=== PATIENT | female | born 1985 | race Caucasian/White ===

== ENCOUNTER 2016-09-21 10:19 | Emergency (ER) | payer MEDICAID ==
[~2016-09-21] VITALS: Ht 165.1 cm; Wt 61.3 kg
[2016-09-21 10:26] VITALS: BP 134/82
[2016-09-21] MEDS ORDERED: NACL 0.9% 1,000 ML IV ONE ×2 (10:35→11:25)
[2016-09-21] MEDS ORDERED: ONDANSETRON 4 MG/2 ML VIAL IVP ONE (10:35)
[2016-09-21] MEDS ORDERED: KETOROLAC 30 MG/ML VIAL IVP ONE (10:35)
--- NOTE | 2016-09-21 10:52 | NUR ---
31/F TO ED WITH C/O EPIGASTRIC PAIN X2 DAYS. PAIN 07/16. STATES SHE HAS NAUSEA AND DIARREHA. PT HAS HX OF GALL STONES. LUNGS CLEAR BILAL. BOWEL SOUNDS PRESENT X4Q. HR EVEN AND REGULAR. AAOX4. VSS. NO SIGNS OF DISTRESS.
--- NOTE | 2016-09-21 11:25 | NUR ---
Patient appears to be resting comfortably in bed. Vital Signs within normal limits. Respirations even and unlabored.
[2016-09-21] MEDS ORDERED: POTASSIUM CHLORIDE 10 MEQ TABER PO ONE (11:30)
[2016-09-21 12:28] VITALS: BP 134/82
--- NOTE | 2016-09-21 12:30 | NUR ---
Patient discharged with v/s stable. Written and verbal after care instructions given and explained. Patient alert, oriented and verbalized understanding of instructions. Ambulatory with steady gait. All questions addressed prior to discharge. ID band removed. Patient advised to follow up with PMD. Rx of ZOFRAN, NORCO, MOTRIN given. Patient educated on indication of medication including possible reaction and side effects. Opportunity to ask questions provided and answered.
--- NOTE | 2016-09-21 13:45 | NUR ---
SPOKE WITH PATIENT ON TELEPHONE; PT STATED WAS SEEN AT [facility] TODAY, DISCHARGED, BUT FORGOT TO ASK ER MD DR. NI FOR NOTE FOR WORK THAT PT WAS SEEN AT ER TODAY AND ASKED IF WORK NOTE CAN BE FAXED TO PT; ER MD DR. NI NOTIFIED; PER ER MD DR. NI, WORK NOTE CAN BE FAXED TO PT; FAXED SIGNED WORK NOTE TO PATIENT AT FAX NUMBER PROVIDED BY PATIENT: [phone]; CONFIRMATION OF FAX RECIEVED.
== END 2016-09-21 12:30 | disposition home or self-care (01) ==
LOC: MED 10:19
DX: K80.20 Calculus of gallbladder without cholecystitis without obstruction (principal); R19.7 Diarrhea, unspecified; E87.6 Hypokalemia; R94.5 Abnormal results of liver function studies; R74.8 Abnormal levels of other serum enzymes; F17.210 Nicotine dependence, cigarettes, uncomplicated
CPT/HCPCS: 36415; 76705; 80053; 81001; 81025; 83690; 84703; 85025; 96361; 96374; 96375; 99285; J1885; J2405; J7030; Q0092

== ENCOUNTER 2017-03-07 12:50 | Inpatient (IN) | payer MEDICAID ==
[~2017-03-07] VITALS: Ht 165.1 cm; Wt 59.9 kg
[2017-03-07 13:06] VITALS: BP 130/84
--- NOTE | 2017-03-07 13:51 | NUR ---
PT AMBULATED TO BED 1.
--- NOTE | 2017-03-07 14:01 | NUR ---
Rupinder rosas in [facility] - 03/07/17 at [address] RICHARDS EVALUATING AAO PT AT BEDSIDE
--- NOTE | 2017-03-07 14:06 | NUR ---
DR RICHARDS EVALUATING AAO PT AT BEDSIDE
--- NOTE | 2017-03-07 14:12 | NUR ---
PATIENT PRESENTS TO ED WITH RUQ PRESSURE PAIN X 3 DAYS AGO WITH EMESIS----WORSE WHEN LAYING DOWN DENIES WATERY/LOOSE STOOLS ADMITS TO DRINKING THIS WEEKEND HX---PSORIASIS, GALLSTONE RX--- CONTROL IMPLANT LUE DENIES DIARRHEA; SKIN IS PINK/WARM/DRY; AAOX4 WITH EVEN AND STEADY GAIT; LUNGS CLEAR BL; HR EVEN AND REGULAR; PT DENIES ANY FEVER, CP, SOB, OR COUGH AT THIS TIME; PATIENT STATES PAIN OF 4/10 AT THIS TIME; VSS; PATIENT POSITIONED FOR COMFORT; HOB ELEVATED; BEDRAILS UP X2; BED DOWN. ER MD MADE AWARE OF PT STATUS.
[2017-03-07] MEDS ORDERED: NACL 0.9% 1,000 ML IV ONE ×2 (14:20→15:35)
[2017-03-07] MEDS ORDERED: MORPHINE SULFATE 4 MG/ML SYR IVP ONE (14:20)
[2017-03-07] MEDS ORDERED: KETOROLAC 30 MG/ML VIAL IVP ONE (14:20)
[2017-03-07] MEDS ORDERED: ONDANSETRON 4 MG/2 ML VIAL IVP ONE (14:20)
[2017-03-07 15:06] LABS: BASOPHILS # (AUTO) 0.2 K/uL (0.00-0.22); BASOPHILS % (AUTO) 3.2 % (0.0-2.0); EOSINOPHILS % (AUTO) 0.5 % (0.0-4.0); HEMATOCRIT 35.7 % (36-48); HEMOGLOBIN 12.2 g/dL (12.0-16.0); LYMPHOCYTES # (AUTO) 1.2 K/uL (2.5-16.5); LYMPHOCYTES % (AUTO) 21.6 % (20.5-51.1); MEAN CORPUSCULAR HEMOGLOBIN 38 pg (27-31); MEAN CORPUSCULAR HGB CONC 34 g/dL (33-37); MEAN CORPUSCULAR VOLUME 111 fL (80-94); MONOCYTES # (AUTO) 0.4 K/uL (0.8-1.0); MONOCYTES % (AUTO) 6.7 % (1.7-9.3); NEUTROPHILS # (AUTO) 3.9 K/uL (1.8-7.7); RED BLOOD CELL COUNT(AUTO) 3.21 MIL/uL (4.20-5.40); RED CELL DISTRIBUTION WIDTH 13.1 % (11.6-13.7); WHITE BLOOD COUNT (AUTO) 5.7 K/uL (4.8-10.8)
[2017-03-07 15:07] LABS: PLATELET COUNT (AUTO) 73 K/uL (140-450)
[2017-03-07 15:10] LABS: APPEARANCE,URINE CLEAR (CLEAR); BILIRUBIN,URINE NEGATIVE (NEGATIVE); BLOOD, URINE TRACE-L (NEGATIVE); COLOR,URINE YELLOW (YELLOW); LEUKOCYTE ESTERASE ,URINE NEGATIVE (NEGATIVE); NITRITE, URINE NEGATIVE (NEGATIVE); UGLUCOSE NEGATIVE (NEGATIVE)
[2017-03-07 15:23] LABS: ALBUMIN 4.7 g/dL (3.4-5.0); ANION GAP 26.9 (8-16); CARBON DIOXIDE 17.8 mmol/L (21-32); CREATININE 0.7 mg/dL (0.6-1.3); POTASSIUM 4.7 mmol/L (3.5-5.1); TOTAL BILIRUBIN 2.2 mg/dL (0.0-1.0)
[2017-03-07 15:34] LABS: RBC,URINE 0-5 (RARE) /HPF (0-5); WBC,URINE 0-5 (RARE) /HPF (0-5)
[2017-03-07] MEDS ORDERED: NACL 0.9% 1,000 ML IV SCH (15:51)
[2017-03-07] MEDS ORDERED: ACETAMINOPHEN 325 MG TAB PO PRN (15:55)
[2017-03-07] MEDS ORDERED: HYDROcodone/APAP 7.5/325 MG 1 TAB PO PRN (15:55)
[2017-03-07] MEDS ORDERED: ONDANSETRON 4 MG/2 ML VIAL IVP PRN ×2 (15:55→16:40)
[2017-03-07 16:00] VITALS: BP 106/73
--- NOTE | 2017-03-07 16:19 | NUR ---
Patient will be admitted to care of JO. Admited to TELE. Will go to room 119B. Belongings list completed. Report to ISRAEL TILLEY.
--- NOTE | 2017-03-07 16:30 | NUR ---
PATIENT ARRIVED FROM ER. PATIENT IS AAOX4. NO SIGNS AND SYMPTOMS OF ACUTE DISTRESS NOTED AT THIS TIME. PATIENT RESPIRATORY EFFORT EVEN AND UNLABORED, BOWEL SOUNDS ARE ACTIVE. HAS IV TO LEFT AC 20G, WILL HANG NS AT 150. PATIENT HAS PSORIASES, DRY PATCH ON RIGHT LOWER LEG, [place]. HAS REDNESS BEHIND BILATERAL EARLOBES. HAS 1/10 PAIN AT THIS TIME. ORIENTED PATIENT TO ROOM, DISCUSSED PLAN OF CARE WITH HER. SHE VERBALIZED UNDERSTANDING. BED IN LOWEST POSITION, SIDERAILS UP X2, CALL LIGHT PLACED WITHIN REACH. WILL CONTINUE TO MONITOR.
[2017-03-07 16:34] LABS: PROTHROMBIN TIME 11.1 secs (10.8-13.4)
[2017-03-07 16:44] LABS: FREE T4 (FREE THYROXINE) 0.74 ng/dL (0.76-1.46); MAGNESIUM 2.1 mg/dL (1.8-2.4); PHOSPHORUS 2.5 mg/dL (2.5-4.9); THYROID STIMULATING HORMONE 2.1 uIU/mL (0.34-3.74)
[2017-03-07 16:44] LABS: BARBITURATE, URINE NEG. ng/ml (NEG <=200); BENZODIAZEPINE, URINE NEG. ng/mL (NEG <=200); CANNABINOID, URINE NEG. ng/mL (NEG <=50); COCAINE, URINE NEG. ng/mL (NEG <=300); OPIATE, URINE NEG. ng/mL (NEG <=2000); PHENCYCLIDINE SCREEN,URINE NEG. ng/mL (NEG <=25)
[2017-03-07] MEDS ORDERED: LACTULOSE 20 GM/30 ML UDC PO SCH (17:15)
[2017-03-07] MEDS ORDERED: LACTOBACILLUS RHAMNOSUS GG 1 EACH CAP PO SCH (17:35)
[2017-03-07] MEDS: NICOTINE TRANSD SYS 14 MG/24 HR PATCH TD SCH (17:40)
[2017-03-07] MEDS: NACL 0.9% 1,000 ML IV SCH (17:41)
[2017-03-07] MEDS ORDERED: PETROLATUM WHITE 30 GM TUBE TP PRN (17:53)
--- NOTE | 2017-03-07 19:29 | NUR ---
RECEIVED FROM AM RN IN BED AWAKE AND ALERT. ABLE TO VERBALIZE SIMPLE NEEDS IN [place]. BED ALARM ON. TELEMETRY MONITORING AND CALL LIGHT WITH N REACH AT BEDSIDE. PT. ALON, PADDED SIDERAILS RT HX. SEIZURES . AFEBRILE. DX. OF UTI AND DEHYDRATION. ENCOURAGED TO CALL FOR ANY HELP SHE MAY NEED.[id number] IVF SITE WITH NS AT 50 ML/H. Addendum: 03/07/17 at 1933 by Grace Rueda RN ABOVE CHARTING ERROR. WRONG PT.
--- NOTE | 2017-03-07 19:33 | NUR ---
RECEIVED FROM AM RN IN BED AWAKE AND WITH MALE VISITOR. ABLE TO VERBALIZE NEEDS WELL IN BERMUDIAN. DX. OF GALLSTONE SEEN. REMINDED NPO MIDNIGHT PER MD. IVF SITE TO LAC #20 INTACT AND NO INFILTRATION. CALL LIGHT WITH IN REACH. AFEBRILE. SKIN INTACT WITH RASHES RT HX. OF PSORIASIS. SEE PICTURES TAKEN. Addendum: 03/07/17 at 2016 by Grace Rueda RN ABOVE ENTRY ERROR . WRONG PT.
--- NOTE | 2017-03-07 19:35 | NUR ---
RECEIVED FROM AM RN IN BED AWAKE AND WITH MALE VISITOR. ABLE TO VERBALIZE NEEDS WELL IN KYRGYZ. DX. OF GALLSTONE SEEN. REMINDED NPO MIDNIGHT PER MD. IVF SITE TO LAC #20 INTACT AND NO INFILTRATION. CALL LIGHT WITH IN REACH. AFEBRILE. SKIN INTACT WITH RASHES RT HX. OF PSORIASIS. SEE PICTURES TAKEN.-
[2017-03-07 20:14] VITALS: BP 138/73
--- NOTE | 2017-03-07 20:16 | NUR ---
PT. AT THIS TIME COMPLAINED OF TREMBLING RT STATED THAT SHE IS ALCOHOLIC AND SHE TOLD MD ABOUT IT. AWARE OF ATIVAN IV REQUESTED. WILL MEDICATE ORDERED. PT. ABLE TO VERBALIZE WELL IN THAI.
[2017-03-07] MEDS: LORazepam 2 MG/ML VIAL IVP PRN (20:20)
[2017-03-07] MEDS: LORazepam 1 MG TAB PO SCH (20:21)
[2017-03-07] MEDS: LACTULOSE 20 GM/30 ML UDC PO SCH (20:21)
[2017-03-07] MEDS: DOCUSATE SODIUM 100 MG GELCAP PO SCH (20:21)
[2017-03-07] MEDS: HYDROCORTISONE 2.5% OINT 30 GM TUBE TP SCH (20:23)
[2017-03-07] MEDS: HYDROcodone/APAP 7.5/325 MG 1 TAB PO PRN (20:39)
--- NOTE | 2017-03-07 20:39 | NUR ---
PT. REQUESTED FOR PAIN RELIEVER. STATED THAT HER ABDOMINAL /RIGHT UPPER QUADRANT IS NOW PAINFUL. MEDICATED REQUESTED WITH HYDROCODONE7.5/325 MG. TOLERATED WELL.
[2017-03-07] MEDS ORDERED: DOCUSATE SODIUM 100 MG GELCAP PO SCH (21:00)
[2017-03-07] MEDS ORDERED: AMPICILLIN 1,000 MG in NACL 0.9% 50 ML IV SCH (21:00)
--- NOTE | 2017-03-07 21:39 | NUR ---
PT. STILL AWAKE BUT STATED THAT MEDICATION TAKEN FOR PAIN IS WORKING.
[2017-03-08] VITALS (7 sets, daily range): BP systolic 101–133; BP diastolic 77–86
[2017-03-08] MEDS: HYDROcodone/APAP 7.5/325 MG 1 TAB PO PRN (00:33)
[2017-03-08] MEDS: LORazepam 2 MG/ML VIAL IVP PRN ×4 (00:34→23:07)
[2017-03-08] MEDS: NACL 0.9% 1,000 ML IV SCH ×4 (00:41→19:25)
--- NOTE | 2017-03-08 00:43 | NUR ---
PT. STILL AWAKE AT THIS TIME AND WATCHING TV. ENCOURAGED TO SLEEP. REQUESTED TO HAVE ATIVAN IVP AND PAIN RELIEVER AND STATED THAT SHE IS STARTING TO FEEL THE PAIN COMING BACK AND THE TREMORS COMING BACK TOO. MEDICATED REQUESTED. IVF SITE TO LEFT AC INTACT AND WITH GOOD BLOOD RETURN.
--- NOTE | 2017-03-08 02:00 | NUR ---
PT. SLEEPING IN AND OUT. GOES BRP INDEPENDENTLY. TELEMETRY MONITORING. NO COMPLAINTS OF N/V AT THIS TIME.
[2017-03-08] MEDS: LORazepam 1 MG TAB PO SCH ×3 (05:00→20:45)
--- NOTE | 2017-03-08 06:08 | NUR ---
PT. SLEEPING AT THIS TIME. NO COMPLAINTS OF PAIN.
[2017-03-08 06:41] LABS: BASOPHILS # (AUTO) 0.1 K/uL (0.00-0.22); BASOPHILS % (AUTO) 3.3 % (0.0-2.0); EOSINOPHILS # (AUTO) 0.1 K/uL (0-0.4); EOSINOPHILS % (AUTO) 1.9 % (0.0-4.0); HEMATOCRIT 31.3 % (36-48); HEMOGLOBIN 10.6 g/dL (12.0-16.0); LYMPHOCYTES # (AUTO) 0.9 K/uL (2.5-16.5); LYMPHOCYTES % (AUTO) 23.4 % (20.5-51.1); MEAN CORPUSCULAR HEMOGLOBIN 38 pg (27-31); MEAN CORPUSCULAR HGB CONC 34 g/dL (33-37); MEAN CORPUSCULAR VOLUME 111 fL (80-94); MONOCYTES # (AUTO) 0.3 K/uL (0.8-1.0); MONOCYTES % (AUTO) 8.2 % (1.7-9.3); NEUTROPHILS # (AUTO) 2.5 K/uL (1.8-7.7); NEUTROPHILS % (AUTO) 63.2 % (42.2-75.2); PLATELET COUNT (AUTO) 51 K/uL (140-450); RED BLOOD CELL COUNT(AUTO) 2.81 MIL/uL (4.20-5.40)
[2017-03-08 06:54] LABS: ALBUMIN 3.7 g/dL (3.4-5.0); ANION GAP 22.8 (8-16); CARBON DIOXIDE 17.1 mmol/L (21-32); CREATININE 0.7 mg/dL (0.6-1.3); POTASSIUM 3.9 mmol/L (3.5-5.1)
[2017-03-08] MEDS ORDERED: AMPICILLIN/SULBACTAM 1.5 GM in NACL 0.9% 50 ML IV SCH (07:00)
[2017-03-08 07:22] LABS: PHOSPHORUS 1.6 mg/dL (2.5-4.9)
[2017-03-08 07:26] LABS: WHITE BLOOD COUNT (AUTO) 3.9 K/uL (4.8-10.8)
--- NOTE | 2017-03-08 07:29 | NUR ---
SPOKE WITH DR LONG AND GAVE HIM PATIENTS LAB RESULTS. HE STATED HE IS PLANNING ON DOING SURGERY AROUND [address]. [address] PL[address] NPO SIGN ON PATIENTS DOOR. PATIENT HAS BEEN NPO SINCE MIDNIGHT.
--- NOTE | 2017-03-08 07:31 | NUR ---
DISCUSSED WITH PATIENT PLAN OF CARE, THAT SHE WILL HAVE SURGERY AT 1500. REINFORCED FOR HER NOT TO TAKE ANYTHING ORALLY. CONSENT HAS BEEN SIGNED. PATIENT VERBALIZED UNDERSTANDING. WILL CONTINUE TO MONITOR.
[2017-03-08] MEDS ORDERED: HYDROmorphone 1 MG/ML AMP IVP PRN (08:45)
--- NOTE | 2017-03-08 08:51 | NUR ---
PATIENT HAS BEEN SCREENED AND CATEGORIZED HIGH NUTRITION RISK. PATIENT WILL BE SEEN WITHIN 1-2 DAYS OF ADMISSION. 03/08/17-03/09/[address]
[2017-03-08] MEDS: THIAMINE 100 MG TAB PO SCH (09:00)
[2017-03-08] MEDS ORDERED: PANTOPRAZOLE 40 MG INJ VIAL IVP SCH (09:00)
[2017-03-08] MEDS: LACTOBACILLUS RHAMNOSUS GG 1 EACH CAP PO SCH (09:00)
[2017-03-08] MEDS: LACTULOSE 20 GM/30 ML UDC PO SCH ×2 (09:00→20:45)
[2017-03-08] MEDS: FOLIC ACID 1 MG TAB PO SCH (09:00)
[2017-03-08] MEDS: DOCUSATE SODIUM 100 MG GELCAP PO SCH ×2 (09:00→20:45)
[2017-03-08] MEDS: MULTIVITAMIN 1 TAB PO SCH (09:00)
[2017-03-08] MEDS: PANTOPRAZOLE 40 MG INJ VIAL IVP SCH (09:40)
[2017-03-08] MEDS: HYDROCORTISONE 2.5% OINT 30 GM TUBE TP SCH ×2 (09:41→20:48)
--- NOTE | 2017-03-08 10:36 | NUR ---
GURU WILSON SPOKE WITH [facility] NOTIFICATION [facility]IT PH# [phone] AND HE SAID THE TRACKING# [id number], ASSIGNED [facility] GURU MAYNARD PH# [phone]. CALLED GURU MAYNARD AND LEFT HER A MESSAGE. NO CALL BACK. INITIAL REVIEW FAXED TO [facility] GURU MAYNARD [phone] PH# [phone].
[2017-03-08] MEDS: AMPICILLIN/SULBACTAM 1.5 GM in NACL 0.9% 50 ML IV SCH ×2 (12:20→18:17)
[2017-03-08] MEDS ORDERED: BUPIVACAINE-MPF 0.25% 30 ML VIAL INJ ONE (14:38)
--- NOTE | 2017-03-08 16:30 | NUR ---
WENT IN TO PATIENTS ROOM WITH DR. BEAULIEU AND DR. PEREIRA. HE APOLOGIZED FOR THE OR DOCTORS BEHAVIOR IN FRONT OF HER CONCERNING HER SURGERY. HE DISCUSSED WITH HER THE REASONS THAT HER PLATELETS ARE LOW, AND INFORMED HER THAT IT IS IN HER BEST INTEREST TO SEEK HELP IN REDUCING HER ALCOHOL INTAKE. PATIENT VERBALIZED UNDERSTANDING. MOTHER OF PATIENT WAS PRESENT DURING THIS TIME.
--- NOTE | 2017-03-08 16:50 | NUR ---
GAVE PATIENT ALCOHOL/DRUG ABUSE HANDOUT, PATIENT VERBALIZED UNDERSTANDING.
[2017-03-08] MEDS: NICOTINE TRANSD SYS 14 MG/24 HR PATCH TD SCH (18:17)
--- NOTE | 2017-03-08 19:17 | NUR ---
ENDORSED PATIENT TO FISH SKINNING MACHINE FEEDER RN FOR CONTINUITY OF CARE. PATIENT IN STABLE CONDITION.
--- NOTE | 2017-03-08 19:18 | NUR ---
RECEIVED REPORT FROM DAY SHIFT RN AT PT BEDSIDE FOR CONTINUITY OF CARE. PT IS A/OX3, ON ROOM AIR, SLIGHTLY DISORIENTED TO TIME. PT HAS A RIGHT WRIST IV 20G INFUSING NS@150ML/HR. PT HAS PSORIASIS PATCH ON RIGHT LE AND BEHIND EARLOBES. SAFETY PRECAUTIONS IN PLACE. UPDATED BOARD. DISCUSSED PLAN OF CARE WITH PT, PT VERBALIZED UNDERSTANDING. VITAL SIGNS WITHIN NORMAL LIMITS. PT IN STABLE CONDITION, NO SIGNS OF DISTRESS NOTED. BED IN LOW POSITION, CALL LIGHT WITHIN REACH. WILL CONTINUE TO MONITOR.
--- NOTE | 2017-03-08 20:05 | NUR ---
ROTARY SAW OPERATOR NOTICED PT HEART RATE ON MONITOR WAS RANGING FROM 120-149. PT HAD AMBULATED THE HALLS WITH HER MOTHER. TOOK PT TO ROOM TO ASSESS VITAL SIGNS, ASIDE FROM HEART RATE WHICH WAS 110 AT THAT TIME ALL OTHER VITAL SIGNS ARE WNL. PT IN STABLE CONDITION, NO SIGNS OF DISTRESS NOTED. BED IN LOW POSITION, CALL LIGHT WITHIN REACH. WILL CONTINUE TO MONITOR.
--- NOTE | 2017-03-08 21:40 | NUR ---
1ST UNIT FOR PLATELET TRANSFUSION WAS INFUSED, PT TOLERATED WELL. NO REACTIONS OCCURRED. VITAL SIGNS BEFORE, DURING, AND AFTER TRANSFUSION WITHIN NORMAL LIMITS. PT IN STABLE CONDITION, NO SIGNS OF DISTRESS NOTED. BED IN LOW POSITION, CALL LIGHT WITHIN REACH. WILL CONTINUE TO MONITOR.
--- NOTE | 2017-03-08 22:30 | NUR ---
2ND UNIT OF PLATELET TRANSFUSION INFUSED SUCCESSFULLY. PT TOLERATED WELL. NO REACTIONS OCCURRED. VITAL SIGNS BEFORE, DURING, AFTER TRANSFUSION WITHIN NORMAL LIMITS. PT IN STABLE CONDITION, NO SIGNS OF DISTRESS NOTED. BED IN LOW POSITION, CALL LIGHT WITHIN REACH. WILL CONTINUE TO MONITOR.
--- NOTE | 2017-03-08 22:50 | NUR ---
DR LONG CALLED TO CHECK THE STATUS OF PT. HE ORDERED AMYLASE AND LIPASE LABS FOR THE MORNING WITH THE ALREADY SCHEDULED LABS FOR THE MORNING.
--- NOTE | 2017-03-08 23:07 | NUR ---
PT FEELING ANXIOUS AND WAS VISIBLY AGITATED, OFFERED PRN ATIVAN AND PT ACCEPTED. ADMINISTERED ATIVAN IVP, PT TOLERATED WELL. PT IN STABLE CONDITION, NO SIGNS OF DISTRESS NOTED. BED IN LOW POSITION, CALL LIGHT WITHIN REACH. WILL CONTINUE TO MONITOR.
--- NOTE | 2017-03-08 23:45 | NUR ---
PT NOTABLY BETTER. SAYS SHE FEELS "SLIGHTLY LESS ANXIOUS". PT IN STABLE CONDITION, NO SIGNS OF DISTRESS NOTED. BED IN LOW POSITION, CALL LIGHT WITHIN REACH. WILL CONTINUE TO MONITOR.
[2017-03-09] MEDS: AMPICILLIN/SULBACTAM 1.5 GM in NACL 0.9% 50 ML IV SCH ×4 (00:35→18:46)
[2017-03-09] MEDS: LORazepam 2 MG/ML VIAL IVP PRN ×2 (00:40→02:11)
--- NOTE | 2017-03-09 00:40 | NUR ---
PT STATES ANXIETY COMING BACK AND REQUESTED ATIVAN. ADMINISTERED ATIVAN IVP, PT TOLERATED WELL. PT IN STABLE CONDITION, NO SIGNS OF DISTRESS NOTED. BED IN LOW POSITION, CALL LIGHT WITHIN REACH. WILL CONTINUE TO MONITOR.
[2017-03-09 01:51] LABS: BASOPHILS # (AUTO) 0.1 K/uL (0.00-0.22); BASOPHILS % (AUTO) 3.7 % (0.0-2.0); EOSINOPHILS # (AUTO) 0.1 K/uL (0-0.4); EOSINOPHILS % (AUTO) 1.9 % (0.0-4.0); HEMATOCRIT 29.5 % (36-48); HEMOGLOBIN 9.8 g/dL (12.0-16.0); LYMPHOCYTES # (AUTO) 0.7 K/uL (2.5-16.5); LYMPHOCYTES % (AUTO) 18.6 % (20.5-51.1); MEAN CORPUSCULAR HEMOGLOBIN 37 pg (27-31); MEAN CORPUSCULAR HGB CONC 33 g/dL (33-37); MEAN CORPUSCULAR VOLUME 112 fL (80-94); MONOCYTES # (AUTO) 0.2 K/uL (0.8-1.0); MONOCYTES % (AUTO) 6.4 % (1.7-9.3); NEUTROPHILS # (AUTO) 2.6 K/uL (1.8-7.7); NEUTROPHILS % (AUTO) 69.4 % (42.2-75.2); PLATELET COUNT (AUTO) 123 K/uL (140-450); RED BLOOD CELL COUNT(AUTO) 2.64 MIL/uL (4.20-5.40); RED CELL DISTRIBUTION WIDTH 12.9 % (11.6-13.7); WHITE BLOOD COUNT (AUTO) 3.7 K/uL (4.8-10.8)
[2017-03-09] MEDS: NACL 0.9% 1,000 ML IV SCH ×4 (01:56→18:40)
[2017-03-09 04:00] VITALS: BP 127/90
[2017-03-09] MEDS: LORazepam 1 MG TAB PO SCH ×4 (04:40→21:03)
--- NOTE | 2017-03-09 04:41 | NUR ---
HELD SCHEDULED ATIVAN DUE TO IT BEING PO AND PT IS NPO. PT IN STABLE CONDITION, NO SIGNS OF DISTRESS NOTED. BED IN LOW POSITION, CALL LIGHT WITHIN REACH. WILL CONTINUE TO MONITOR.
[2017-03-09 05:27] LABS: BASOPHILS # (AUTO) 0.1 K/uL (0.00-0.22); BASOPHILS % (AUTO) 3.7 % (0.0-2.0); EOSINOPHILS # (AUTO) 0.1 K/uL (0-0.4); EOSINOPHILS % (AUTO) 2.2 % (0.0-4.0); HEMOGLOBIN 10.1 g/dL (12.0-16.0); LYMPHOCYTES # (AUTO) 0.7 K/uL (2.5-16.5); LYMPHOCYTES % (AUTO) 22.9 % (20.5-51.1); MEAN CORPUSCULAR HEMOGLOBIN 37 pg (27-31); MEAN CORPUSCULAR HGB CONC 34 g/dL (33-37); MEAN CORPUSCULAR VOLUME 111 fL (80-94); MONOCYTES # (AUTO) 0.2 K/uL (0.8-1.0); MONOCYTES % (AUTO) 7.2 % (1.7-9.3); NEUTROPHILS # (AUTO) 2.2 K/uL (1.8-7.7); PLATELET COUNT (AUTO) 130 K/uL (140-450); RED CELL DISTRIBUTION WIDTH 12.8 % (11.6-13.7); WHITE BLOOD COUNT (AUTO) 3.3 K/uL (4.8-10.8)
[2017-03-09 05:50] LABS: ANION GAP 18.2 (8-16); CARBON DIOXIDE 21.5 mmol/L (21-32); CREATININE 0.8 mg/dL (0.6-1.3); POTASSIUM 3.7 mmol/L (3.5-5.1)
[2017-03-09 06:06] LABS: MAGNESIUM 1.9 mg/dL (1.8-2.4)
[2017-03-09 06:11] LABS: AMYLASE 67 U/L (25-115); LIPASE 1107 U/L (73-393)
[2017-03-09 06:17] LABS: PHOSPHORUS 1.7 mg/dL (2.5-4.9)
--- NOTE | 2017-03-09 07:10 | NUR ---
ENDORSED PT TO DAY SHIFT RN FOR CONTINUITY OF CARE. PT IN STABLE CONDITION.
--- NOTE | 2017-03-09 07:15 | NUR ---
RECEIVED REPORT FROM NIGHT RN, PT A/O X 4, PT REPORTS HEADACHE AND ANXIETY, PLAN OF CARE DISCUSSED WITH PT, PT VERBALIZED UNDERSTANDING, MOM AT BEDSIDE, IV PATENT AND INTACT, NO OTHER S/S OF ACUTE DISTRESS, SAFETY PRECAUTIONS TAKEN, CALL LIGHT WITHIN REACH, WILL CONT TO MONITOR.
[2017-03-09] MEDS ORDERED: LORazepam 1 MG TAB PO PRN (07:40)
[2017-03-09 07:54] VITALS: BP 117/76
[2017-03-09] MEDS: LACTULOSE 20 GM/30 ML UDC PO SCH ×2 (08:29→21:00)
[2017-03-09] MEDS: FOLIC ACID 1 MG TAB PO SCH (08:30)
[2017-03-09] MEDS: SODIUM PHOS / POTASSIUM PHOS 1 PKT PDR PO SCH ×3 (08:30→16:01)
[2017-03-09] MEDS: DOCUSATE SODIUM 100 MG GELCAP PO SCH ×2 (08:30→21:03)
[2017-03-09] MEDS: MULTIVITAMIN 1 TAB PO SCH (08:30)
[2017-03-09] MEDS: PANTOPRAZOLE 40 MG INJ VIAL IVP SCH (08:30)
[2017-03-09] MEDS: LACTOBACILLUS RHAMNOSUS GG 1 EACH CAP PO SCH (08:31)
[2017-03-09] MEDS: THIAMINE 100 MG TAB PO SCH (08:31)
[2017-03-09] MEDS: ACETAMINOPHEN 325 MG TAB PO PRN ×2 (08:31→20:13)
[2017-03-09] MEDS: HYDROCORTISONE 2.5% OINT 30 GM TUBE TP SCH ×2 (08:34→21:27)
--- NOTE | 2017-03-09 08:42 | NUR ---
DUE MEDICATIONS GIVEN WITH EDUCATION, PT VERBALIZED UNDERSTANDING, NO S/S OF ACUTE DISTRESS, PT IN 10/06 PAIN, PAIN MEDICATIONS GIVEN, CALL LIGHT WITHING REACH, WILL CONT TO MONITOR.
[2017-03-09] MEDS ORDERED: DULoxetine 30 MG CAPDR PO SCH (09:30)
--- NOTE | 2017-03-09 09:30 | NUR ---
03/09/17 RD INITIAL ASSESSMENT COMPLETED PLEASE REFER TO NUTRITION ASSESSMENT UNDER CARE ACTIVITY FOR ESTIMATED NUTRITIONAL NEEDS. RD RECOMMENDATIONS: 1. CONTINUE NPO MEDICALLY APPROPRIATE PER MD. 2. CONSIDER INITIATING REGULAR DIET TOLERATED WHEN MEDICALLY APPROPRIATE PER MD. 3. CONSULT RDN PRN. 4. RD WILL F/U 2-3 DAYS; HIGH RISK. CLINT CALI, MS, RDN
--- NOTE | 2017-03-09 10:30 | NUR ---
PT RESTING IN BED, A/OX4, NO S/S OF ACUTE DISTRESS, PT DENIES PAIN, CALL LIGHT WITHIN REACH, MOM AT BEDSIDE, WILL CONT TO MONITOR.
[2017-03-09 11:57] VITALS: BP 121/76
--- NOTE | 2017-03-09 12:21 | NUR ---
DUE MEDICATIONS GIVEN WITH EDUCATION, PT VERBALIZED UNDERSTANDING, PT TOLERATED WELL, WILL CONT TO MONITOR.
--- NOTE | 2017-03-09 14:30 | NUR ---
PT RESTING IN BED ON RA, NO S/S OF ACUTE DISTRESS, PT DENIES PAIN, CALL LIGHT WITHIN REACH, WILL CONT TO MONITOR.
[2017-03-09 15:45] VITALS: BP 132/80
[2017-03-09] MEDS: NICOTINE TRANSD SYS 14 MG/24 HR PATCH TD SCH (18:46)
--- NOTE | 2017-03-09 19:13 | NUR ---
GAVE REPORT TO NIGHT RN, PT IN STABLE CONDITION.
--- NOTE | 2017-03-09 19:15 | NUR ---
RECEIVED HANDOFF REPORT FROM AM RN. PATIENT A&OX4. IV SITE PATENT AND INTACT. PATIENT STATES HEADACHE. WILL MEDICATE ORDERED. PATIENT DENIES PAIN. NO SIGNS OR SYMPTOMS OF ACUTE DISTRESS NOTED. CALL LIGHT WITHIN REACH. FAMILY AT BEDSIDE. WILL CONTINUE TO MONITOR.
[2017-03-09 20:00] VITALS: BP 130/85
--- NOTE | 2017-03-09 21:03 | NUR ---
PM MEDS GIVEN WITH EDUCATION. PATIENT VERBALIZED UNDERSTANDING. PATIENT DENIES PAIN. NO SIGNS OR SYMPTOMS OF ACUTE DISTRESS NOTED. CALL LIGHT WITHIN REACH. WILL CONTINUE TO MONITOR.
[2017-03-10] VITALS: BP 131/85
[2017-03-10] MEDS ORDERED: ZOLPIDEM 5 MG TAB PO SCH (01:05)
[2017-03-10] MEDS: NACL 0.9% 1,000 ML IV SCH (01:19)
--- NOTE | 2017-03-10 01:20 | NUR ---
PATIENT AWAKE IN BED. STATES TROUBLE SLEEPING. WILL MEDICATE ORDERED. PATIENT DENIES PAIN. NO SIGNS OR SYMPTOMS OF ACUTE DISTRESS NOTED. CALL LIGHT WITHIN REACH. WILL CONTINUE TO MONITOR.
[2017-03-10 04:00] VITALS: BP 136/92
[2017-03-10] MEDS: LORazepam 1 MG TAB PO SCH (05:27)
--- NOTE | 2017-03-10 06:17 | NUR ---
PATIENT STATES CONCERN REGARDING POSSIBLE SURGERY. MD AWARE AND CLARIFIED NO SURGERY. WILL FOLLOW UP WITH SURGEON PER MD. PATIENT DENIES PAIN. PATIENT REQUEST INFORMATION REGARDING PSYCH CONSULT UPON DISCHARGE, WILL PROVIDE INFORMATION. NO SIGNS OR SYMPTOMS OF ACUTE DISTRESS NOTED. CALL LIGHT WITHIN REACH. WILL CONTINUE TO MONITOR.
[2017-03-10 06:24] LABS: HEMOGLOBIN 10.6 g/dL (12.0-16.0); MEAN CORPUSCULAR HEMOGLOBIN 38 pg (27-31); MEAN CORPUSCULAR HGB CONC 34 g/dL (33-37); MEAN CORPUSCULAR VOLUME 110 fL (80-94); PLATELET COUNT (AUTO) 116 K/uL (140-450); RED BLOOD CELL COUNT(AUTO) 2.81 MIL/uL (4.20-5.40); RED CELL DISTRIBUTION WIDTH 12.9 % (11.6-13.7); WHITE BLOOD COUNT (AUTO) 3.6 K/uL (4.8-10.8)
[2017-03-10] MEDS: ACETAMINOPHEN 325 MG TAB PO PRN (06:28)
[2017-03-10] MEDS: SODIUM PHOS / POTASSIUM PHOS 1 PKT PDR PO SCH (06:30)
[2017-03-10 06:32] LABS: ANION GAP 19.3 (8-16); CARBON DIOXIDE 22.1 mmol/L (21-32); CREATININE 0.6 mg/dL (0.6-1.3); POTASSIUM 3.4 mmol/L (3.5-5.1)
[2017-03-10 06:54] LABS: PROTHROMBIN TIME 11.8 secs (10.8-13.4)
[2017-03-10] MEDS ORDERED: HYD2.5O TP (07:06)
[2017-03-10] MEDS ORDERED: ACET-2869 PO (07:06)
[2017-03-10] MEDS ORDERED: LORA-476 PO (07:06)
[2017-03-10] MEDS ORDERED: MULT-405 PO (07:06)
[2017-03-10] MEDS ORDERED: LACT10SO11 PO (07:06)
[2017-03-10] MEDS ORDERED: DULO30EC PO (07:06)
[2017-03-10] MEDS ORDERED: THIA-8 PO (07:06)
[2017-03-10] MEDS ORDERED: FOLI1TAB90 PO (07:06)
--- NOTE | 2017-03-10 07:10 | NUR ---
RECEIVED REPORT FROM NIGHT RN, PT A/O X 4, SHOWED NO S/S OF ACUTE DISTRESS. PT DENIED PAIN AT THIS TIME. MOM AT BEDSIDE, IV NOTED ON THE LEFT WRIST, PATENT AND INTACT, AND INFUSING WELL. BED IN LOW POSITION, CALL LIGHT WITHIN REACH, WILL CONT TO MONITOR.
--- NOTE | 2017-03-10 07:29 | NUR ---
ENDORSED PLAN OF CARE TO AM RN. PATIENT IN STABLE CONDITION. SAFETY MEASURES ENSURED.
[2017-03-10 07:36] LABS: BASOPHILS % (MANUAL) 0 % (0-2); EOSINOPHILS % (MANUAL) 2 % (0-4); LYMPHOCYTES % (MANUAL) 31 % (20-46); MONOCYTES % (MANUAL) 10 % (5-12)
[2017-03-10 08:01] VITALS: BP 129/83
--- NOTE | 2017-03-10 08:45 | NUR ---
PT DISCHARGED TO HOME PER MD ORDER. DISCHARGE INSTRUCTIONS AND MEDICATION TEACHING GIVEN. PT VERBALIZED UNDERSTANDING. IV DC'ED, TIP INTACT, PRESSURE APPLIED. PT TOLERATED WELL. PT DENIED PAIN, NAUSEA, AND VOMITING AT THIS TIME. PT LEFT WITH ALL HER PERSONAL BELONGINGS AND IN STABLE CONDITION. PT WAS WHEELED TO HER VEHICLE.
[2017-03-10] MEDS ORDERED: POTASSIUM CHLORIDE 10 MEQ TABER PO SCH (08:57)
[2017-03-10] MEDS ORDERED: DULoxetine 30 MG CAPDR PO SCH (09:00)
[2017-03-10] MEDS ORDERED: PHOS1PDR4 PO (09:52)
[2017-03-10] MEDS ORDERED: MELA5TAB5 PO ×2 (14:47→14:49)
== END 2017-03-10 08:50 | disposition home or self-care (01) ==
LOC: MED 12:50 → MTU 15:56
PROVIDERS: ADMIT Family Medicine; ATTEND Family Medicine
PROC: 30233N1 Transfusion of Nonautologous Red Blood Cells into Peripheral Vein, Percutaneous Approach (ICD-10-PCS; principal; 2017-03-08)
DX: K80.20 Calculus of gallbladder without cholecystitis without obstruction (principal); N17.0 Acute kidney failure with tubular necrosis; G92 Toxic encephalopathy; K85.10 Biliary acute pancreatitis without necrosis or infection; K85.20 Alcohol induced acute pancreatitis without necrosis or infection; E87.2 Acidosis; E87.8 Other disorders of electrolyte and fluid balance, not elsewhere classified; D69.6 Thrombocytopenia, unspecified; F10.20 Alcohol dependence, uncomplicated; D50.9 Iron deficiency anemia, unspecified; K72.90 Hepatic failure, unspecified without coma; E87.1 Hypo-osmolality and hyponatremia; E87.6 Hypokalemia; F41.1 Generalized anxiety disorder; F33.1 Major depressive disorder, recurrent, moderate; F17.210 Nicotine dependence, cigarettes, uncomplicated; R74.0 Nonspecific elevation of levels of transaminase and lactic acid dehydrogenase [LDH]; E86.0 Dehydration; E80.6 Other disorders of bilirubin metabolism; L40.9 Psoriasis, unspecified; K76.0 Fatty (change of) liver, not elsewhere classified; R82.4 Acetonuria; E83.39 Other disorders of phosphorus metabolism; Z91.030 Bee allergy status; Z59.9 Problem related to housing and economic circumstances, unspecified; Z79.899 Other long term (current) drug therapy
CPT/HCPCS: 36415; 71010; 74150; 76705; 80048; 80053; 80305; 81001; 81025; 82140; 82150; 83036; 83605; 83615; 83690; 83735; 83880; 84100; 84439; 84443; 84484; 84703; 85025; 85610; 85730; 86886; 86900; 86901; 87045; 87081; 89055; 93005; 96361; 96374; 96375; 99285; C9113; G0482; J0295; J1170; J1885; J2060; J2270; J2405; J3490; J7030; P9035; Q0092